=== PATIENT | male | born 1935 | race Caucasian/White ===

== ENCOUNTER 2023-12-06 11:25 | Emergency (ER) | payer MEDICARE, BC, SELFPAY ==
[2023-12-06 11:41] VITALS: BP 152/73
--- NOTE | 2023-12-06 12:38 | ED.GENMED ---
History of Present Illness
General
Chief Complaint: Nose Bleed
Source: patient
Exam Limitations: none
Time Seen by Provider: 12/06/23 11:50
Nursing documentation reviewed up to this point in time: agreed with
Travel History
Have you had any contact with someone who has COVID-19?: No
Do you have any symptoms of coronavirus? Fever > 100 degrees, chills, cough, shortness of breath, sore throat, loss of taste or smell, muscle aches, or headache?: No
History of Present Illness
History of Present Illness:
88-year-old male presenting to the emergency department today with concerns of right-sided nostril swelling starting yesterday as well as this morning. Not on blood thinners denies specific trauma denies large-volume bleeding. Patient is on Plavix
for heart disease
Past History
Past History
ED Past Medical History: CAD and HTN
ED Past Surgical History: Cardiac
Social History
Tobacco: Non-smoker
Alcohol: Occasional
Drug: None
Personal:
Employment: Retired
Family History
Family History: Other (Noncontributory)
Review of Systems
Review of Systems
Allergies reviewed?: Yes
All Other Systems: ROS reviewed and negative except as documented in HPI and ROS
Phy Exam
Physical Exam
Physical Exam:
GENERAL: Alert , in no apparent distress
EYE: pupils equal and reactive
NECK: Supple, no significant adenopathy.
ENT: Small scab to the right nasal septum no active bleeding o/p clr, mmm.
CARDIAC: Regular rate and rhythm .
LUNGS: Clear breath sounds bilaterally, no acute respiratory distress, no wheezes/rales/rhonchi
ABDOMEN: Soft, without focal tenderness, no r/g, no cvat
NEUROLOGICAL: Alert and oriented, no focal neuro deficits
SKIN: Warm and dry, skin intact.
MUSCULOSKELETAL: No edema, well perfused.
PSYCH: Normal and appropriate interaction.
Course
Vital Signs
Initial and Last Documented VS:
Initial Vital Signs
Temp Pulse Resp BP Pulse Ox
98.6 F 61 20 152/73 97
12/06/23 11:41 12/06/23 11:41 12/06/23 11:41 12/06/23 11:41 12/06/23 11:41
Last Documented Vital Signs
Temp Pulse Resp BP Pulse Ox
98.6 F 61 20 152/73 97
12/06/23 11:41 12/06/23 11:41 12/06/23 11:41 12/06/23 11:41 12/06/23 11:41
Procedures
Nosebleed
Drug treatment: Lidocaine and Epinephrine
Treatment: Silver nitrate cautery
Post treatment bleeding: none- good control
MDM/Problems Addressed
MDM/Problems Addressed:
88-year-old male presenting to the emergency department today with concerns of intermittent bleeding to the right nostril since yesterday. Here he has a small scab to the right nostril but no active bleeding. This area was cauterized patient
tolerated well stable for discharge. Return precautions given.
*Critical Care Note
Total Time (30-74mins, 75-104mins- exclusive of procedures): Not Applicable
ED Attending Note
-
Portions of this chart may have been created with voice recognition software.� Occasional wrong word or��sound alike� substitutions may have occurred due to the inherent limitations of voice recognition software.
Discharge Plan
Departure
Patient Disposition: Home (Routine Discharge)
Date of Disposition: 12/06/23
Time of Disposition: 12:39
Patient with high blood pressure during this ER visit?: No
Condition: Good
Covid-19: Not Applicable
Discharge Problem:
Nosebleed
Instructions: Nosebleeds (DC)
Prescriptions:
No Action
Atenolol
DAILY
Patient Comments:
pt unsure of dose
ascorbic acid (vitamin C) [Vitamin C] 1,000 MG tablet
1,000 mg PO DAILY
atorvastatin [Lipitor] 10 MG tablet
10 mg PO DAILY
clopidogrel [Plavix] 75 MG tablet
75 mg PO DAILY
aspirin [Enteric Coated Aspirin] 81 MG tablet,delayed release (DR/EC)
81 mg PO DAILY
dmdnqvwy-bxmu-rssyov-hyalur ac 1 CAP capsule
1 cap PO DAILY
omega-3 fatty acids-fish oil 1 EACH capsule
1 cap PO DAILY
multivitamin with folic acid [Tab-A-Milvia] 1 TABLET tablet
1 tab PO DAILY
Enalapril
PO
Patient Comments:
unsure of dose
Referrals:
Donald Navas DO [Family Provider] -
Activity Restrictions/Additional Instructions:
You came to the emergency department today with concerns of bleeding from the right nostril. This was cauterized. Please keep the area moist and protected at home. Return to the emergency department for any worsening, new or concerning symptoms.
Interventions
Interventions:
*Risk Screen - Suicide Last Done: 12/06/23 12:17
*General Assessment Last Done: 12/06/23 12:17
*Neglect/Abuse Screening Last Done: 12/06/23 12:17
ED-EENT Assessment Last Done: 12/06/23 12:17
Discharge Date and Time
Print Language: BARBADIAN
== END 2023-12-06 12:53 | disposition home or self-care (01) ==
LOC: EMR 11:25
PROVIDERS: EMERGENCY PHYSICIAN Emergency Medicine; FAMILY PHYSICIAN Family Medicine
DX: R04.0 Epistaxis (principal); I11.0 Hypertensive heart disease with heart failure; I50.9 Heart failure, unspecified; I25.10 Atherosclerotic heart disease of native coronary artery without angina pectoris; Z79.02 Long term (current) use of antithrombotics/antiplatelets
CPT/HCPCS: 99282; 30901

== ENCOUNTER → 2024-09-03 10:23 | Outpatient (REF) | payer MEDICARE, BC, SELFPAY | LOC: RCS 10:23 | PROVIDERS: ATTENDING PHYSICIAN Student in an Organized Health Care Education/Training Program; FAMILY PHYSICIAN Family Medicine | DX: I34.0 Nonrheumatic mitral (valve) insufficiency (principal); I35.1 Nonrheumatic aortic (valve) insufficiency | CPT/HCPCS: 93306 ==

== ENCOUNTER 2025-08-03 19:16 | Observation (INO) | payer MEDICARE, BC, SELFPAY ==
[2025-08-03] VITALS (9 sets, daily range): BP systolic 116–153; BP diastolic 49–100; BMI 29.7; BMI 27.3
--- NOTE | 2025-08-03 15:23 | ED.GENMED ---
History of Present Illness
<Martín Polanco PA-C - Last Filed: 08/03/25 19:55>
General
Chief Complaint: Weakness
Time Seen by Provider: 08/03/25 15:06
History of Present Illness
History of Present Illness:
89-year-old male with history of hyperlipidemia presents to the emergency department for evaluation of generalized weakness that has been ongoing throughout the course of the. Reports chills but no fever. Denies any chest pain or dyspnea. Does
have a dry cough as well as diffuse bodyaches. No nausea vomiting or diarrhea. Multiple family members recently with similar flulike symptoms
Past History
<Martín Polanco PA-C - Last Filed: 08/03/25 19:55>
Past History
ED Past Medical History: CAD and HTN
ED Past Surgical History: Cardiac
Social History
Tobacco: Non-smoker
Alcohol: Occasional
Drug: None
Personal:
Employment: Retired
Family History
Family History: Other (Noncontributory)
Review of Systems
<Martín Polanco PA-C - Last Filed: 08/03/25 19:55>
Review of Systems
Allergies reviewed?: Yes
All Other Systems: ROS reviewed and negative except as documented in HPI and ROS
Phy Exam
<Martín Polanco PA-C - Last Filed: 08/03/25 19:55>
Physical Exam
Physical Exam:
GEN: Well appearing, NAD, WDWN
HEENT: Oral mucosa moist, no scleral icterus
Cardiac: Regular rate and rhythm, no
Lung: Mildly tachypneic, no respiratory distress, poor inspiratory effort limits on exam but no overt adventitious lung sounds
MSK: No gross deformity or injuries
Skin: Good color, no pallor or jaundice, no rashes
Neuro: AO x3, moves all extremities freely
Psych: Calm, cooperative
Course
<Martín Polanco PA-C - Last Filed: 08/03/25 19:55>
Orders/Labs/Results
Orders:
Orders
08/03/25 Dinner
Regular
At Your Request: Limited, Clearing Supervisor Required
Does patient need a safe tray?: No
08/03/25 15:22
0.9% Sodium Chloride 1000 ml [Nss] 1,000 ml IV BOLUS
08/03/25 15:23
CR Chest - 2 Views Urgent
Comment:
Reason For Exam: cough, weakness
08/03/25 16:07
COVID-19 Antigen Urgent
Source: Nasal Swab
Complete Blood Count/With Diff Urgent
Comprehensive Metabolic Panel Urgent
Influenza A+B Rapid Molecular Urgent
[place] Source: Nasal Swab
Specimen Description:
08/03/25 17:49
Oseltamivir Phosphate [Tamiflu] 75 mg PO NOW STA
08/03/25 17:57
Admit/Transfer Patient As Directed
Co-Sign Provider:
Level of Care: Observation services
Assign to:: Medical/Surgical
Physician / Group: fausto
Diagnosis: influenza infection
Code Status As Directed
Resuscitation Status: Full Code
PRN Pain Medication Management As Directed
May give lesser potent ordered pain med per pt: Yes
preference::
Protocol:: Medication orders for pain may be administered in a
manner that supports deferring to patient preference
when the pt is:
- Requesting an ordered lesser potent pain medication.
Least to most potent pain medications are defined
as: acetaminophen < NSAID < tramadol < opioids
(morphine, oxycodone, hydromorphone).
- Requesting a lesser dose of the same medication IF
ORDERED.
- Requesting a less intrusive route of administration
if both routes are prescribed by the provider (PO <
IV).
08/03/25 19:52
Acetaminophen [Tylenol] 650 mg PO Q4HPRN PRN
08/03/25 19:52
Activity As Directed
Activity Level: As Tolerated
Vital Signs As Directed
Frequency: Per unit guidelines
DX Deep Vein Thrombosis Video Routine
08/03/25 20:00
Heparin 5,000 units SC Q12
Oseltamivir Phosphate [Tamiflu] 75 mg PO BID
08/04/25 06:00
Complete Blood Count/With Diff IN AM
Comprehensive Metabolic Panel IN AM
08/04/25 08:00
Multivitamin [Theragran] 1 tablet PO DAILY
Ramipril [Altace] 2.5 mg PO DAILY
ascorbic acid (vitamin C) [Vitamin C] 1,000 mg PO DAILY
aspirin 81 mg PO DAILY
glucos sul 4NZt-kad-zbnji-C-Mn [Glucosamine Chondroitin] 2 cap PO DAILY
omega 5-djl-mys-fish oil [Fish Oil] 1 cap PO DAILY
08/04/25 18:00
Atorvastatin [Lipitor] 10 mg PO QPM
Abnormal Lab Results
08/03/25
16:07
RBC 3.66 L 10^6/uL
(4.70-6.10)
Hgb 12.1 L g/dL
(13.0-18.0)
Hct 34.8 L %
(39.0-52.0)
MCV 95.1 H fL
(80.0-94.0)
MCH 33.1 H pg
(27.0-31.0)
Plt Count 123 L 10^3/uL
(130-400)
Absolute Lymphs (auto) 0.4 L 10^3/uL
(1.2-3.4)
Absolute Monos (auto) 0.7 H 10^3/uL
(0.1-0.6)
Immature Gran % 0.6 H %
(0-0.5)
Neutrophils % 78.8 H %
(42.2-75.2)
Lymphocytes % 7.8 L %
(20.5-51.1)
Monocytes % 12.6 H %
(1.7-9.3)
Sodium 134 L mmol/L
(135-145)
BUN 23 H mg/dl
(9-20)
Glucose 103 H mg/dl
(70-99)
Calcium 8.3 L mg/dl
(8.4-10.2)
08/03/25 16:07
08/03/25 16:07
Vital Signs
Initial and Last Documented VS:
Initial Vital Signs
Temp Pulse Resp BP Pulse Ox
99.8 F 87 16 139/100 95
08/03/25 14:18 08/03/25 14:18 08/03/25 14:18 08/03/25 14:18 08/03/25 14:18
Last Documented Vital Signs
Temp Pulse Resp BP Pulse Ox
99.8 F 78 16 148/58 95
08/03/25 14:18 08/03/25 19:00 08/03/25 19:00 08/03/25 19:00 08/03/25 18:00
<Jax Shepard, DO - Last Filed: 08/03/25 18:05>
Orders/Labs/Results
Orders:
Orders
08/03/25 Dinner
Regular
At Your Request: Limited, Clearing Supervisor Required
Does patient need a safe tray?: No
08/03/25 15:22
0.9% Sodium Chloride 1000 ml [Nss] 1,000 ml IV BOLUS
08/03/25 15:23
CR Chest - 2 Views Urgent
Comment:
Reason For Exam: cough, weakness
08/03/25 16:07
COVID-19 Antigen Urgent
Source: Nasal Swab
Complete Blood Count/With Diff Urgent
Comprehensive Metabolic Panel Urgent
Influenza A+B Rapid Molecular Urgent
[place] Source: Nasal Swab
Specimen Description:
08/03/25 17:49
Oseltamivir Phosphate [Tamiflu] 75 mg PO NOW STA
08/03/25 17:57
Admit/Transfer Patient As Directed
Co-Sign Provider:
Level of Care: Observation services
Assign to:: Medical/Surgical
Physician / Group: fausto
Diagnosis: influenza infection
Code Status As Directed
Resuscitation Status: Full Code
PRN Pain Medication Management As Directed
May give lesser potent ordered pain med per pt: Yes
preference::
Protocol:: Medication orders for pain may be administered in a
manner that supports deferring to patient preference
when the pt is:
- Requesting an ordered lesser potent pain medication.
Least to most potent pain medications are defined
as: acetaminophen < NSAID < tramadol < opioids
(morphine, oxycodone, hydromorphone).
- Requesting a lesser dose of the same medication IF
ORDERED.
- Requesting a less intrusive route of administration
if both routes are prescribed by the provider (PO <
IV).
08/03/25 19:52
Acetaminophen [Tylenol] 650 mg PO Q4HPRN PRN
08/03/25 19:52
Activity As Directed
Activity Level: As Tolerated
Vital Signs As Directed
Frequency: Per unit guidelines
DX Deep Vein Thrombosis Video Routine
08/03/25 20:00
Heparin 5,000 units SC Q12
Oseltamivir Phosphate [Tamiflu] 75 mg PO BID
08/04/25 06:00
Complete Blood Count/With Diff IN AM
Comprehensive Metabolic Panel IN AM
08/04/25 08:00
Multivitamin [Theragran] 1 tablet PO DAILY
Ramipril [Altace] 2.5 mg PO DAILY
ascorbic acid (vitamin C) [Vitamin C] 1,000 mg PO DAILY
aspirin 81 mg PO DAILY
glucos sul 2TEf-ccj-qieml-C-Mn [Glucosamine Chondroitin] 2 cap PO DAILY
omega 3-imj-vde-fish oil [Fish Oil] 1 cap PO DAILY
08/04/25 18:00
Atorvastatin [Lipitor] 10 mg PO QPM
Abnormal Lab Results
08/03/25
16:07
RBC 3.66 L 10^6/uL
(4.70-6.10)
Hgb 12.1 L g/dL
(13.0-18.0)
Hct 34.8 L %
(39.0-52.0)
MCV 95.1 H fL
(80.0-94.0)
MCH 33.1 H pg
(27.0-31.0)
Plt Count 123 L 10^3/uL
(130-400)
Absolute Lymphs (auto) 0.4 L 10^3/uL
(1.2-3.4)
Absolute Monos (auto) 0.7 H 10^3/uL
(0.1-0.6)
Immature Gran % 0.6 H %
(0-0.5)
Neutrophils % 78.8 H %
(42.2-75.2)
Lymphocytes % 7.8 L %
(20.5-51.1)
Monocytes % 12.6 H %
(1.7-9.3)
Sodium 134 L mmol/L
(135-145)
BUN 23 H mg/dl
(9-20)
Glucose 103 H mg/dl
(70-99)
Calcium 8.3 L mg/dl
(8.4-10.2)
08/03/25 16:07
08/03/25 16:07
Vital Signs
Initial and Last Documented VS:
Initial Vital Signs
Temp Pulse Resp BP Pulse Ox
99.8 F 87 16 139/100 95
08/03/25 14:18 08/03/25 14:18 08/03/25 14:18 08/03/25 14:18 08/03/25 14:18
Last Documented Vital Signs
Temp Pulse Resp BP Pulse Ox
99.8 F 78 16 148/58 95
08/03/25 14:18 08/03/25 19:00 08/03/25 19:00 08/03/25 19:00 08/03/25 18:00
<Martín Polanco PA-C - Last Filed: 08/03/25 19:55>
MDM/Problems Addressed
MDM/Problems Addressed:
Due to severe weakness and inability to safely ambulate the patient will be admitted for observation, he is not hypoxic. Given that he is outside of 48 hours there is not likely a strong benefit to antiviral therapy however will institute due to
his severe symptoms requiring hospitalization
<Martín Polanco PA-C - Last Filed: 08/03/25 19:55>
*Pulse Oximetry
SaO2: 94
Oxygen Mode of Delivery: Room air
Patient hypoxic: no
*Critical Care Note
Total Time (30-74mins, 75-104mins- exclusive of procedures): Not Applicable
ED Attending Note
<Martín Polanco PA-C - Last Filed: 08/03/25 19:55>
-
Portions of this chart may have been created with voice recognition software.� Occasional wrong word or��sound alike� substitutions may have occurred due to the inherent limitations of voice recognition software.
<Jax Shepard DO - Last Filed: 08/03/25 18:05>
ED Attending Note
Patient seen and examined by attending physician: Yes
I performed the substantive portion of visit, reviewed & personally made and approve the management plan that is documented in note by myself or DAVID.: Yes
ED Attending Note:
I have seen and evaluated the patient with a [id number] encounter. I have spoken to the advance practicer provider and involved in the medical history, the physical exam, medical decision making.
Evaluation and management service: agree unless noted differently below.
Results interpretation: agree unless noted differently below.
Focused HPI: 89-year-old male presenting with generalized weakness and fatigue. Symptoms started about a week ago. Patient states he is having trouble getting out of bed
Physical exam: Weak and fatigued. Dry mucous membranes
Medical Decision Making: Patient found to be influenza positive. Given his inability to ambulate, will admit for symptomatic care
Discharge Plan
Departure
Patient Disposition: Admit
Date of Disposition: 08/03/25
Time of Disposition: 17:52
Presentation/result/management discussed w/ accepting MD/DO: Hospitalist
Discharge Problem:
Influenza A
Interventions
Interventions:
*General Assessment Last Done: 08/03/25 14:18
*Neglect/Abuse Screening Last Done: 08/03/25 14:18
*ED COVID-19 Vaccine History Last Done: 08/03/25 14:18
*ED Influenza Vaccine History Last Done: 08/03/25 14:18
[facility] Risk Assessment Tool Last Done: 08/03/25 14:32
*Risk Screen - Suicide (C-SSRS) Last Done: 08/03/25 14:18
ED- Cardiac Assessment Last Done: 08/03/25 14:34
ED- Neurological Assessment Last Done: 08/03/25 16:21
ED- Pulmonary Assessment Last Done: 08/03/25 16:21
[2025-08-03] MEDS: NSS 1000 IV (16:09)
[2025-08-03 16:17] LABS: Hematocrit 34.8 % (39.0-52.0); Hemoglobin 12.1 g/dL (13.0-18.0); Mean Corp Hgb Conc. 34.8 g/dL (33.0-37.0); Mean Corpuscular Volume 95.1 fL (80.0-94.0); Nucleated Red Blood Cells % 0 % (-); Platelet Count 123 10^3/uL (130-400); Red Cell Dist. Width 12.5 % (11.5-14.5)
[2025-08-03 16:29] LABS: COVID-19 Antigen Negative (Negative)
[2025-08-03 16:33] LABS: ALT (SGPT) 30 U/L (0-50); AST (SGOT) 38 U/L (17-59); Albumin 3.8 g/dl (3.5-5.0); Alkaline Phosphatase 42 U/L (38-126); Blood Urea Nitrogen 23 mg/dl (9-20); Calcium 8.3 mg/dl (8.4-10.2); Carbon Dioxide 25 mmol/L (22-30); Chloride 103 mmol/L (98-107); Estimated Creatinine Clearance 42 ml/min; Glucose 103 mg/dl (70-99); Potassium 3.9 mmol/L (3.5-5.1); Sodium 134 mmol/L (135-145); Total Protein 6.8 g/dl (6.3-8.2); eGFR 52.51
--- NOTE | 2025-08-03 17:58 | HPS.HSE ---
Family Physician
-
Family Physician: Donald Navas
Chief Complaint
-
cough
History of Present Illness
89-year-old male past medical history of hyperlipidemia, CAD, hypertension, cognitive decline, moderate aortic regurgitation, severe mitral regurgitation, polyneuropathy, arteriovenous malformation, presenting for 3 to 4 days of dry cough, body
aches, generalized weakness, chills without fever. No chest pain or shortness of breath. No nausea vomiting or diarrhea. Multiple family numbers with flulike symptoms.
He does not smoke or drink alcohol.
Medical History
Past Medical History
Past Medical History: Reports Other (hyperlipidemia, CAD, hypertension, cognitive decline, moderate aortic regurgitation, severe mitral regurgitation, polyneuropathy, arteriovenous malformation)
Past Surgical History: Reports None
Social History
Tobacco: Non-smoker
Alcohol: None
Drug: None
Family History
Family History: Not pertinent
Allergies / Home Medications
Allergies reflects when Allergies were last updated in [employer].
Home Medications with original date entered in [employer]
Allergy/Medication List:
Allergies
Allergy/AdvReac Type Severity Reaction Status Date / Time
No Known Allergies Allergy Verified 08/03/25 14:20
Home Medications
Atenolol DAILY 05/08/09
Enalapril PO 05/08/09
ascorbic acid (vitamin C) 1,000 mg tablet (Vitamin C) 1,000 mg PO DAILY 05/08/09
aspirin 81 mg tablet,delayed release (Enteric Coated Aspirin) 81 mg PO DAILY 05/08/09
atorvastatin 10 mg tablet (Lipitor) 10 mg PO DAILY 05/08/09
clopidogrel 75 mg tablet (Plavix) 75 mg PO DAILY 05/08/09
glucosamin 375 mg-chond 300 mg-collagen 50 mg-hyaluronic acid 2 mg cap 1 cap PO DAILY 05/08/09
multivitamin with folic acid 400 mcg tablet (Tab-A-Milvia) 1 tab PO DAILY 05/08/09
omega-3 fatty acids-fish oil 396 mg-1,200 mg capsule 1 cap PO DAILY 05/08/09
Review of Systems
-
History Source: Patient
A 12 point ROS was completed and negative except as noted: Yes
Constitutional: Reports No Symptoms
EENT: Reports No Symptoms
Respiratory: Reports See HPI
Cardiac: Reports No Symptoms
Abdomen/GI: Reports No Symptoms
: Reports No Symptoms
Musculoskeletal: Reports No Symptoms
Skin: Reports No Symptoms
Neurological: Reports No Symptoms
Endocrine: Reports No Symptoms
Hematologic/Lymphatic: Reports No Symptoms
Psych: Reports No Symptoms
Physical Exam
Vital Signs
Vital Signs
Temp Pulse Resp BP Pulse Ox
99.8 F 82 20 149/69 94
08/03/25 14:18 08/03/25 17:00 08/03/25 17:00 08/03/25 17:00 08/03/25 16:12
Physical Exam
General: Well Developed, Well Nourished and No Apparent Distress
HEENT: NormoCephalic, Moist mucous membranes and Atraumatic
Respiratory: Clear
Cardiac: S1/S2 and Regular Rhythm; No Murmur or Rub
GI: Soft, Non Tender, Non Distended and Normal Bowel Sounds; No Organomegaly
Rectal: Deferred by Provider
Musculoskeletal: No Clubbing, No Cyanosis and No Edema
Skin: No Rash
Neuro: Nonfocal/grossly intact
Laboratory Results
-
08/03/25 16:07
08/03/25 16:07
Laboratory Results
Total Bilirubin 0.4 mg/dl (0.2-1.3) 08/03/25 16:07
AST 38 U/L (17-59) 08/03/25 16:07
ALT 30 U/L (0-50) 08/03/25 16:07
Alkaline Phosphatase 42 U/L (38-126) 08/03/25 16:07
Data Reviewed
-
Lab Data: Labs Reviewed by me
Old Records: Reviewed
Impression/Plan
-
IMPRESSION:
PLAN:
# Weakness secondary to influenza A infection
- Not hypoxemic
- Chest x-ray appears unremarkable, report pending
-IV fluids given
- Tamiflu started
# Mild thrombocytopenia secondary to influenza
- Continue to monitor
Hyperlipidemia
- Continue statin
CAD
- Continue aspirin, Plavix,
Essential hypertension
- Continue atenolol, enalapril
History of cognitive decline
Moderate aortic regurgitation
Severe mitral regurgitation
Polyneuropathy
History of arteriovenous malformation
Full code
DVT prophylaxis�heparin
Regular diet
[2025-08-03] MEDS: TAMIFLU 75 MG PO (18:56)
--- NOTE | 2025-08-03 20:10 | PTCARENOTE ---
Pt arrived to unit via stretcher. Pt stated having worsening fatigue and unable to walk compared to baseline. Pt pulled over to bed and initial assessment and admission questions completed. Sacral foam and heel foams applied. Pt noted to have temp
of 102. See OCT.
[2025-08-03] MEDS: TYLENOL 650 MG PO (20:15)
[2025-08-03] MEDS: HEPARIN 5000 UNITS SC (20:16)
[2025-08-04] MEDS: TYLENOL 650 MG PO ×3 (01:04→09:21)
[2025-08-04] MEDS: ROBITUSSIN 100 MG PO (01:31)
[2025-08-04] MEDS: ANESTHETIC LOZENGE 1 LOZENGE PO ×2 (01:32→17:08)
[2025-08-04 07:08] VITALS: BP 122/47
[2025-08-04] MEDS: ASPIR LOW (ENTERIC COATED) 81 MG PO (08:32)
[2025-08-04] MEDS: TAMIFLU 75 MG PO (08:32)
[2025-08-04] MEDS: THERAGRAN 1 TABLET PO (08:32)
[2025-08-04] MEDS: ALTACE 2.5 MG PO (08:32)
[2025-08-04] MEDS: VITAMIN C 1000 MG PO (08:32)
[2025-08-04] MEDS: HEPARIN 5000 UNITS SC ×2 (08:33→20:45)
[2025-08-04 09:59] LABS: Hematocrit 33.2 % (39.0-52.0); Hemoglobin 11.4 g/dL (13.0-18.0); Mean Corp Hgb Conc. 34.3 g/dL (33.0-37.0); Mean Corpuscular Volume 96.2 fL (80.0-94.0); Nucleated Red Blood Cells % 0 % (-); Platelet Count 106 10^3/uL (130-400); Red Cell Dist. Width 12.8 % (11.5-14.5)
[2025-08-04 10:22] LABS: ALT (SGPT) 35 U/L (0-50); AST (SGOT) 64 U/L (17-59); Albumin 3.2 g/dl (3.5-5.0); Alkaline Phosphatase 38 U/L (38-126); Blood Urea Nitrogen 24 mg/dl (9-20); Calcium 7.8 mg/dl (8.4-10.2); Carbon Dioxide 23 mmol/L (22-30); Chloride 103 mmol/L (98-107); Estimated Creatinine Clearance 46 ml/min; Glucose 96 mg/dl (70-99); Potassium 3.4 mmol/L (3.5-5.1); Sodium 133 mmol/L (135-145); Total Protein 6.1 g/dl (6.3-8.2); eGFR 57.81
--- NOTE | 2025-08-04 12:24 | W.PN.HOSP.TC ---
Today's Communication/Plan
-
Continue current care.
Assessment / Plan
Assessment / Plan
89-year-old man with a past medical history of:
hyperlipidemia,
CAD,
essential hypertension,
cognitive decline,
moderate aortic regurgitation,
severe mitral regurgitation,
polyneuropathy,
arteriovenous malformation,
presents with 3 to 4 days of dry cough, body aches, generalized weakness, chills without fever. No chest pain or shortness of breath. No nausea vomiting or diarrhea. Multiple family numbers with flulike symptoms.
Found to have Flu A.
A/PLAN:
1. Weakness secondary to influenza A infection - improving
- Not hypoxemic
- Chest x-ray appears unremarkable, report pending
-IV fluids given
- Tamiflu started
2. Mild thrombocytopenia secondary to influenza
- Continue to monitor
3. Hyperlipidemia
- Continue statin
4. CAD
- Continue aspirin, Plavix,
5. Essential hypertension
- Continue atenolol, enalapril
Other known issues:
History of cognitive decline
Moderate aortic regurgitation
Severe mitral regurgitation
Polyneuropathy
History of arteriovenous malformation
Full code
DVT prophylaxis�heparin
Regular diet
Anticipated Discharge: > 48 hours
Subjective/Interval History
-
Date of Service: August 04, 2025
Starting to feel better.
Objective Data
-
Labs:
Laboratory Results
08/04/25
09:19
WBC 6.6
Hgb 11.4 L
Hct 33.2 L
Plt Count 106 L
Sodium 133 L
Potassium 3.4 L
Chloride 103
Carbon Dioxide 23
BUN 24 H
Creatinine 1.2
Glucose 96
Calcium 7.8 L
Total Bilirubin 0.3
AST 64 H
ALT 35
Alkaline Phosphatase 38
Vital Signs:
Vital Signs
Temp Pulse Resp BP Pulse Ox
99.1 F 70 16 122/47 95
08/04/25 11:44 08/04/25 08:32 08/04/25 07:08 08/04/25 08:32 08/04/25 11:44
I&O
08/03/25 08/04/25 08/05/25
06:59 06:59 06:59
Intake Total 960 / 960
Output Total 500 / 500
Balance 460 / 460
Review of Systems
-
History Source: Patient
All other systems: Reviewed and negative
Physical Exam
-
General: Well Developed, Well Nourished, No Apparent Distress and Comfortable
Respiratory: Rhonchi and Decreased Breath Sounds
Cardiac: Regular Rhythm and S1/S2
GI: Soft, Nontender and Nondistended
Musculoskeletal: No Clubbing, No Cyanosis and No Edema
Skin: Warm and Dry; Negative Rash
Neuro: Awake, Alert, Oriented and AO x 3
Psych: Calm
Data Reviewed
-
Labs: Labs Reviewed by me
[2025-08-04 15:00] VITALS: BP 115/54
[2025-08-04] MEDS: LIPITOR 10 MG PO (17:04)
[2025-08-04] MEDS: TAMIFLU 30 MG PO (20:45)
[2025-08-04 23:00] VITALS: BP 133/58
[2025-08-05 07:57] VITALS: BP 132/68
[2025-08-05] MEDS: ALTACE 2.5 MG PO (08:46)
[2025-08-05] MEDS: TESSALON PERLES 100 MG PO ×3 (08:46→22:46)
[2025-08-05] MEDS: ROBITUSSIN 100 MG PO (08:47)
[2025-08-05] MEDS: ASPIR LOW (ENTERIC COATED) 81 MG PO (08:47)
[2025-08-05] MEDS: TAMIFLU 30 MG PO (08:47)
[2025-08-05] MEDS: VITAMIN C 1000 MG PO (08:47)
[2025-08-05] MEDS: THERAGRAN 1 TABLET PO (08:47)
[2025-08-05] MEDS: HEPARIN 5000 UNITS SC (08:47)
[2025-08-05 09:36] LABS: Hematocrit 35.1 % (39.0-52.0); Hemoglobin 11.9 g/dL (13.0-18.0); Mean Corp Hgb Conc. 33.9 g/dL (33.0-37.0); Mean Corpuscular Volume 95.4 fL (80.0-94.0); Platelet Count 103 10^3/uL (130-400); Red Cell Dist. Width 12.6 % (11.5-14.5)
[2025-08-05 09:55] LABS: Blood Urea Nitrogen 22 mg/dl (9-20); Calcium 7.8 mg/dl (8.4-10.2); Carbon Dioxide 26 mmol/L (22-30); Chloride 106 mmol/L (98-107); Estimated Creatinine Clearance 46 ml/min; Glucose 82 mg/dl (70-99); Potassium 3.7 mmol/L (3.5-5.1); Sodium 136 mmol/L (135-145); eGFR 57.81
--- NOTE | 2025-08-05 12:29 | W.PN.HOSP.TC ---
Today's Communication/Plan
-
Supportive care
PT/OT
Discharge planning
Assessment / Plan
Assessment / Plan
89M with HTN, CAD, AR/MR, polyneuropathy, p/w cough, weakness, found to have influenza.
Influenza A
No hypoxia, no acute findings in chest x-ray
IS for crackles
Supportive care with cough suppressants, mucolytics
Tamiflu for 5 days, dose adjusted
Weakness
Due to flu
PT/OT eval
Mild thrombocytopenia
Could be due to acute illness
Trend while here and have follow-up labs with PCP
CAD
Aspirin/statin
HTN
BP controlled
Continue home ramipril
DVT PPx
Lovenox
Dispo: TBD
Anticipated Discharge: Within 24 hours
Subjective/Interval History
-
Date of Service: August 05, 2025
Patient notes cough, productive. Feeling a little bit better than previous.
Objective Data
-
Labs:
Laboratory Results
08/05/25
08:28
WBC 4.2 L
Hgb 11.9 L
Hct 35.1 L
Plt Count 103 L
Sodium 136
Potassium 3.7
Chloride 106
Carbon Dioxide 26
BUN 22 H
Creatinine 1.2
Glucose 82
Calcium 7.8 L
Vital Signs:
Vital Signs
Temp Pulse Resp BP Pulse Ox
99.0 F 73 16 132/68 93
08/05/25 07:57 08/05/25 08:46 08/05/25 07:57 08/05/25 08:46 08/05/25 08:35
I&O
08/04/25 08/05/25 08/06/25
06:59 06:59 06:59
Intake Total 960 / 960 960 / 960
Output Total 500 / 500 850 / 850
Balance 460 / 460 110 / 110
Review of Systems
-
History Source: Patient
All other systems: Reviewed and negative
Physical Exam
-
General: No Apparent Distress
HEENT: Moist Mucous Membranes, Anicteric and PERRLA
Respiratory: Rales (RLL); Negative Wheezes or Rhonchi
Cardiac: S1/S2, Irregular Rhythm and Murmur; Negative Rub or Gallop
GI: Soft, Nontender, Nondistended and Normal Bowel Sounds
Musculoskeletal: No Edema
Skin: Warm and Dry; Negative Rash, Ulcers or Lesions
Neuro: Awake and AO x 3
Hematologic / Lymphatic: No Lymphadenopathy
Psych: Calm
Data Reviewed
-
Diagnostic Radiology: Report Reviewed by me and Discussed with Patient
Labs: Labs Reviewed by me and Discussed with Patient
--- NOTE | 2025-08-05 13:06 | CM ---
CM met with pt bedside, admitted for flu
Pt resides with his spouse in a 2nd floor apartment, OSTE and elevator access
Pt is independent at baseline, drives+
Denies use of DMEs and financial insecurities
PCP- Calixto Navas
Rx- [facility] [address]
PT/OT evals requested and pending
Pt is OBS- [facility] verbally reviewed, copy provided
Discharge Disposition- home, likely with VN, follow for higher needs
[2025-08-05 15:30] VITALS: BP 136/52; BP 140/51; PULSE 69; O2SAT 95
[2025-08-05 15:54] VITALS: BP 127/55
[2025-08-05] MEDS: ROBITUSSIN DM 10 ML PO ×2 (16:05→20:21)
[2025-08-05] MEDS: LIPITOR 10 MG PO (17:30)
[2025-08-05] MEDS: LOVENOX 40 MG SC (17:30)
[2025-08-05] MEDS: TAMIFLU 75 MG PO (20:20)
[2025-08-05 22:42] VITALS: BP 156/73
[2025-08-05] MEDS: ANESTHETIC LOZENGE 1 LOZENGE PO (22:59)
[2025-08-05] MEDS: TYLENOL 650 MG PO (22:59)
[2025-08-06 08:06] VITALS: BP 132/57
[2025-08-06] MEDS: TESSALON PERLES 100 MG PO (08:15)
[2025-08-06] MEDS: ROBITUSSIN DM 10 ML PO (08:15)
[2025-08-06] MEDS: THERAGRAN 1 TABLET PO (08:16)
[2025-08-06] MEDS: TAMIFLU 75 MG PO (08:16)
[2025-08-06] MEDS: ASPIR LOW (ENTERIC COATED) 81 MG PO (08:16)
[2025-08-06] MEDS: VITAMIN C 1000 MG PO (08:16)
[2025-08-06] MEDS: ALTACE 2.5 MG PO (08:16)
[2025-08-06 09:05] VITALS: BP 131/63; PULSE 69; O2SAT 95
[2025-08-06 09:59] LABS: Hematocrit 36.3 % (39.0-52.0); Hemoglobin 12.8 g/dL (13.0-18.0); Mean Corp Hgb Conc. 35.3 g/dL (33.0-37.0); Mean Corpuscular Volume 95.5 fL (80.0-94.0); Nucleated Red Blood Cells % 0 % (-); Platelet Count 104 10^3/uL (130-400); Red Cell Dist. Width 12.5 % (11.5-14.5)
[2025-08-06 10:25] LABS: Blood Urea Nitrogen 21 mg/dl (9-20); Calcium 8.3 mg/dl (8.4-10.2); Carbon Dioxide 25 mmol/L (22-30); Chloride 106 mmol/L (98-107); Estimated Creatinine Clearance 50 ml/min; Glucose 95 mg/dl (70-99); Potassium 3.8 mmol/L (3.5-5.1); Sodium 137 mmol/L (135-145); eGFR > 60.00
--- NOTE | 2025-08-06 11:40 | CM ---
Addendum entered by Fariha Jolly 08/06/25 12:00:
Transport [id number]
Phone # provided to spouse/Kayla so she can provide payment
Original Note:
CM reviewed chart and noted dc order
Bedside meeting with pt
VN recs by therapy- referral to [facility] per pt request
Pt will need transport home as his is sick at home
[facility] van $75 and pt in agreement with cost
Transport form on chart
Discharge Disposition- home with [facility] via [employer] van
--- NOTE | 2025-08-06 11:58 | VNURNOTE ---
Home Health Liaison spoke with patient at bedside to discuss [facility] nurse/therapy, visits, schedule and homebound status. Patient is agreeable and understands that visits at home will be 2-3 x per week to assess and teach medical management.
Patient is aware that [facility] will contact them for start of care within a week after discharge from .
[facility] referral completed in [facility].
[2025-08-06 14:01] VITALS: BP 133/54
--- NOTE | 2025-08-07 19:08 | W.DCSUMMARY ---
Discharge Summary
Discharge Data
Date of Admission: 08/03/25
Date of Discharge: 08/06/25
Total time spent discharging patient (in min): 35
Discharge Plan
-
Patient Disposition: Home with Home Care
Discharge Diagnosis/Procedures: Influenza A
Diet: Regular
Activity: As tolerated
Other Services: PT and OT
Instructions: Flu in adults (DC)
Referrals:
Donald Navas DO [Family Provider, Family Practice] - in one week
Prescriptions:
New
acetaminophen 325 mg Tablet
650 mg PO Q4HPRN PRN (Reason: mild pain/SIMMS/temp> 100.4F) Qty: 0 0RF
oseltamivir 75 mg Capsule
75 mg PO BID Qty: 4 0RF
benzonatate 200 mg capsule
200 mg PO BID Qty: 14 0RF
dextromethorphan-guaifenesin 10-100 mg/5 mL Syrup
10 ml PO Q4HPRN PRN (Reason: cough) Qty: 0 0RF
Chloraseptic Sore Throat 6-10 mg Lozenge
1 yumiko PO Q4HPRN PRN (Reason: sore throat) Qty: 30 0RF
Continued
ascorbic acid (vitamin C) [Vitamin C] 1,000 MG tablet
1,000 mg PO DAILY
atorvastatin [Lipitor] 10 MG tablet
10 mg PO QPM
multivitamin with folic acid [Tab-A-Milvia] 1 TABLET tablet
1 tab PO DAILY
aspirin 81 mg Tablet
81 mg PO DAILY
Glucosamine Chondroitin 550-30-1 mg Capsule
2 cap PO DAILY
ramipril 2.5 mg capsule
2.5 mg PO DAILY
omega 7-bpl-ljp-fish oil [Fish Oil] 1,000 (120-180) mg Capsule
1 cap PO DAILY
Discharge Orders:
Discharge Patient (As Directed); Ordered 08/06/25
Ordered By: Erica Daniel
Discharge Date and Time
Discharge Date/Time: 08/06/25 14:31
Print Language: ARMENIAN
== END 2025-08-06 14:31 | disposition home health service (06) ==
LOC: 2 NORTH 19:16
PROVIDERS: Internal Medicine; Physician Assistant; ADMITTING PHYSICIAN Hospitalist; ATTENDING PHYSICIAN Internal Medicine; EMERGENCY PHYSICIAN Student in an Organized Health Care Education/Training Program; FAMILY PHYSICIAN Family Medicine
DX: J10.1 Influenza due to other identified influenza virus with other respiratory manifestations (principal); R53.1 Weakness; I10 Essential (primary) hypertension; I25.10 Atherosclerotic heart disease of native coronary artery without angina pectoris; R05.9 Cough, unspecified; D69.59 Other secondary thrombocytopenia; R41.89 Other symptoms and signs involving cognitive functions and awareness; E78.49 Other hyperlipidemia; I08.0 Rheumatic disorders of both mitral and aortic valves; G62.9 Polyneuropathy, unspecified; Q27.30 Arteriovenous malformation, site unspecified; Z79.02 Long term (current) use of antithrombotics/antiplatelets; Z79.82 Long term (current) use of aspirin; Z79.899 Other long term (current) drug therapy; Z11.52 Encounter for screening for COVID-19
CPT/HCPCS: 71046; 80048; 80053; 85025; 85027; 87502; 87811; 96360; 97162; 97166; 99285; G0378